=== PATIENT | female | born 1985 | race Caucasian/White ===

== ENCOUNTER 2017-02-12 00:37 | Emergency (ER) | payer OTHER ==
[~2017-02-12] VITALS: Ht 160 cm; Wt 93.0 kg
[2017-02-12 00:41] VITALS: Ht 160 cm; Wt 93.0 kg
[2017-02-12] MEDS ORDERED: ALBUTEROL 0.083% (NEB) 2.5 MG/3 ML AMP HHN STA (02:45)
[2017-02-12] MEDS ORDERED: SOD CHLORIDE 0.9% 1,000 ML IV STA (02:45)
[2017-02-12] MEDS ORDERED: IPRATROPIUM (NEB) 0.5 MG/2.5 ML AMP HHN ONE (03:00)
[2017-02-12] MEDS ORDERED: predniSONE 20 MG TAB PO ONE (03:00)
--- NOTE | 2017-02-12 03:49 | RADRPT ---
PROCEDURE: US OB. CLINICAL INDICATION: Lower abdominal pain. Clinical estimate gestational age is 19 weeks 4 days w ith estimated date of delivery 07/05/2017 TECHNIQUE: Multiple sonographic images of the pelvis were obtained. The images were reviewed on a PACS workstation. COMPARISON: No prior studies are available for comparison. FINDINGS: There is a single live intrauterine gestation. Cardiac activity is present with 152 beats per minut e. There is a variable position. Measurements were made in order to determine age. The results are as follows: BPD =4.33 cm, 19 weeks 1 day HC =15.84 cm, 18 weeks 5 days AC =13.05 cm, 18 weeks 4 days FL =3.01 cm, 19 weeks 2 days. Estimated gestational age of approximately 19 weeks 0 days. The estimated date of delivery is 07/09/2017. The EFW = 263.54 g, 0 pounds 9 ounces, 14.3% . The placenta is posterior and grade 0. There is no evidence for an abruption. There is a normal amount of amniotic fluid with a maximum vertical pocket of 5 cm. IMPRESSION: Single live intrauterine gestation of approximately 19 weeks 0 days based on ultrasound measurements . The estimated date of delivery is 07/09/2017 . RPTAT: HJES .Blu Shah MD, Date Time Electronically viewed and signed by .Blu Shah MD, MD on 02/12/2017 03:49 .S/
--- NOTE | 2017-02-12 03:53 | RADRPT ---
PROCEDURE: Abdominal ultrasound, limited. CLINICAL INDICATION: Right lower quadrant pain. TECHNIQUE: Multiple real-time images were acquired of the right lower quadrant utilizing a high r esolution transducer. COMPARISON: None FINDINGS: Normal compressible bowel is present. There is no abnormal mass or fluid collection identified. Th e appendix is not visualized. The right iliac vessels are visualized with normal flow. IMPRESSION: Appendix not visualized. If clinical concern for appendicitis persists, and MR or CT of the abdomen and pelvis without IV con trast should be considered. .Aristides Aquino MD, MD Date Time Electronically viewed and signed by .Aristides Aquino MD, on 02/12/2017 03:53 .T/
[2017-02-12 04:08] LABS: BASOPHIL # 0.1 10^3/ul (0.0-0.1); BASOPHILS % 0.4 % (0.0-2.0); EOSINOPHILS # 0.2 10^3/ul (0.0-0.5); EOSINOPHILS % 2.1 % (0.0-7.0); HEMATOCRIT 31.4 % (37.0-47.0); HEMOGLOBIN 10.7 g/dl (12.0-16.0); LYMPHOCYTES # 2.2 10^3/ul (0.8-2.9); LYMPHOCYTES % 18.9 % (15.0-51.0); MEAN CORPUSCULAR HEMOGLOBIN 28.1 pg (29.0-33.0); MEAN CORPUSCULAR HGB CONC 34.1 g/dl (32.0-37.0); MEAN CORPUSCULAR VOLUME 82.4 fl (82.0-101.0); MEAN PLATELET VOLUME 11.7 fl (7.4-10.4); MONOCYTES % 8.9 % (0.0-11.0); NEUTROPHIL # 7.9 10^3/ul (1.6-7.5); NEUTROPHILS % 69.3 % (39.0-77.0); PLATELET COUNT 268 10^3/UL (140-415); RED BLOOD COUNT 3.81 10^6/ul (4.20-5.40); RED CELL DISTRIBUTION WIDTH 13.1 % (11.5-14.5); WHITE BLOOD COUNT 11.4 10^3/ul (4.8-10.8)
--- NOTE | 2017-02-12 05:38 | ERD ---
ER Documentation Chief Complaint Chief Complaint asthma attack. SOB x 3 days HPI 31-year-old female presents with increasingly progressive short of breath for 3 days that feels like her asthma exacerbation. She is also had a cough. She is 20 weeks and also complains of suprapubic and right lower quadrant abdominal pain today. She has no fevers or chills. She may have some discomfort on urination. No nausea or vomiting. ROS All systems reviewed and are negative except as per history of present illness. Medications Home Meds Active Scripts Prednisone* (Prednisone*) 20 Mg Tab, 40 MG PO DAILY for 4 Days, TAB Prov:BOB HILTON DO 02/12/17 Cephalexin* (Cephalexin*) 500 Mg Capsule, 500 MG PO Q8, #15 CAP Prov:BOB HILTON DO 02/12/17 Reported Medications [None] No Conflict Check 07/29/13 Allergies Allergies: Coded Allergies: amoxicillin (Unverified Allergy, Severe, diarrhea, 02/12/17) PMhx/Soc History of Surgery: Yes (C/S X 2) Anesthesia Reaction: No Hx Neurological Disorder: No Hx Respiratory Disorders: Yes (Asthma) Hx Cardiac Disorders: Yes (HTN) Hx Psychiatric Problems: No Hx Miscellaneous Medical Probl: Yes (Prediabetic) Hx Alcohol Use: No Hx Substance Use: No Hx Tobacco Use: No Smoking Status: Never smoker Physical Exam Vitals Vital Signs Date Time Temp Pulse Resp B/P Pulse Ox O2 Delivery O2 Flow Rate FiO2 02/12/17 03:28 117 22 99 21 02/12/17 00:41 97.8 122 24 131/77 99 Physical Exam Const: [] Moderate distress, appears very short of breath. Head: Atraumatic Eyes: Normal Conjunctiva ENT: Normal External Ears, Nose and Mouth. Resp: Clear to auscultation bilaterally Cardio: Regular rate and rhythm, no murmurs Abd: Soft, gravid, obese abdomen with no specific palpable tenderness. Skin: No petechiae or rashes Ext: No cyanosis, or edema Neur: Awake and alert oriented 3, no focal deficits Psych: Normal Mood and Affect Result Diagram: 02/12/17 0335 Results 24 hrs Laboratory Tests Test 02/12/17 03:35 White Blood Count 11.410^3/ul Red Blood Count 3.8110^6/ul Hemoglobin 10.7g/dl Hematocrit 31.4% Mean Corpuscular Volume 82.4fl Mean Corpuscular Hemoglobin 28.1pg Mean Corpuscular Hemoglobin Concent 34.1g/dl Red Cell Distribution Width 13.1% Platelet Count 89230^3/UL Mean Platelet Volume 11.7fl Neutrophils % 69.3% Lymphocytes % 18.9% Monocytes % 8.9% Eosinophils % 2.1% Basophils % 0.4% Nucleated Red Blood Cells % 0.0/100WBC Neutrophils # 7.910^3/ul Lymphocytes # 2.210^3/ul Monocytes # 1.010^3/ul Eosinophils # 0.210^3/ul Basophils # 0.110^3/ul Nucleated Red Blood Cells # 0.010^3/ul Current Medications Medications (Trade) Dose Ordered Sig/[place] Route PRN Reason Start Time Stop Time Status Last Admin Dose Admin Sodium Chloride (NS) 1,000 ml @ 1,000 mls/hr Q1H STAT IV 02/12/17 02:45 02/12/17 03:44 DC 02/12/17 04:13 Albuterol (Proventil 0.083% (Neb)) 10 mg ONCE STAT HHN 02/12/17 02:45 02/12/17 02:49 DC 02/12/17 03:28 Ipratropium [place] (Atrovent 0.02% (Neb)) 1 mg ONCE ONCE HHN 02/12/17 03:00 02/12/17 03:01 DC 02/12/17 03:28 Prednisone (Prednisone) 40 mg ONCE ONCE PO 02/12/17 03:00 02/12/17 03:01 DC 02/12/17 04:13 Procedures/MDM Asthma exacerbation in female. No signs of distress on ultrasound with positive movement and good heart tones. Patient's abdominal pain was likely secondary urinary tract infection. I have low suspicion for acute appendicitis as her pain was completely resolved without pain medication. Discharge with 5 days of Keflex as well as prednisone for 4 days. She has an albuterol inhaler at home which she uses. She was given a 10 mg albuterol and 1 mg Atrovent breathing treatment in the emergency room which completely resolved her wheezing and shortness of breath. She is also given a prednisone tablet. Primary care follow-up in 2 3 days and strict return precautions Abdominal ultrasound limited interpretation: Appendix not visualized Obstetric ultrasound interpretation: 19 week fetus with positive movement and heart rate of 152. No signs of abruption. Departure Diagnosis: Primary Impression: Asthma exacerbation Additional Impressions: UTI (urinary tract infection) during Acute abdominal pain BOB HILTON DO Feb 12, 2017 05:38
[2017-02-12] MEDS ORDERED: CEPH500C PO (06:23)
[2017-02-12] MEDS ORDERED: PRED20TA PO (06:23)
[2017-02-12 06:41] VITALS: RESP 20
== END 2017-02-12 06:43 | disposition home or self-care (01) ==
LOC: FTE 00:37
DX: O99.512 Diseases of the respiratory system complicating pregnancy, second trimester (principal); J45.901 Unspecified asthma with (acute) exacerbation; O23.42 Unspecified infection of urinary tract in pregnancy, second trimester; R10.2 Pelvic and perineal pain; Z3A.19 19 weeks gestation of pregnancy
CPT/HCPCS: 36415; 76705; 76805; 85025; 86900; 86901; 94644; J7030; J7512; Z7502; Z7610

== ENCOUNTER 2017-04-08 22:11 | Emergency (ER) | END 2017-04-08 23:14 | disposition home or self-care (01) ==

== ENCOUNTER 2017-04-08 23:19 | Outpatient (CLI) | END 2017-04-09 00:45 | disposition home or self-care (01) ==

== ENCOUNTER 2017-06-28 06:04 | Inpatient (IN) | END 2017-07-01 18:53 | disposition home or self-care (01) | DRG 765 ==